=== PATIENT | female | born 1980 | race Two or more races ===

== ENCOUNTER 2018-05-05 07:08 | Emergency (ER) | payer SELFPAY ==
[2018-05-05 07:32] VITALS: BP 132/85; PULSE 80; RESP 18; TEMP 98.2; O2SAT 99; BMI 26.6
== END 2018-05-05 07:41 | disposition left against medical advice (07) ==
LOC: ED 07:08
DX: Z02.89 Encounter for other administrative examinations (principal); M79.603 Pain in arm, unspecified